=== PATIENT | female | born 1985 | race Two or more races ===

== ENCOUNTER 2017-12-04 07:49 | Emergency (ER) | payer OTHER ==
[2017-12-04 08:29] LABS: URINE HCG POC HCG NEGATIVE (Negative)
[2017-12-04 08:30] LABS: BILIRUBIN,URINE NEGATIVE (NEG); CLARITY,URINE TURBID; COLOR,URINE AMBER; GLUCOSE,URINE NEGATIVE (NEG); NITRITE,URINE NEGATIVE (NEG); PROTEIN,URINE 30 mg/dL (NEG-TRACE); UROBILINOGEN,URINE 0.2 mg/dL (0.2 mg/dL)
[2017-12-04] MEDS: IV NORMAL SALINE 1000ML BAG 1,000 ML IV ×2 (08:42)
[2017-12-04] MEDS: ONDANSETRON PF 4 MG/2 ML VIAL. IV ×2 (08:42)
[2017-12-04] MEDS: FAMOTIDINE 20 MG/2 ML VIAL IVP ×2 (08:42)
[2017-12-04 08:43] LABS: ADD MAN DIFF? NO
[2017-12-04] MEDS: fentaNYL PF VIAL 100 MCG/2 ML VIAL IV ×2 (08:43)
[2017-12-04 08:51] LABS: BACTERIA,URINE MODERATE /HPF (0-FEW); RBC,URINE 0 /HPF (0-2); SQUAMOUS EPITHELIAL CELL,UR MOD /LPF; WBC,URINE 20-40 /HPF (0-4)
[2017-12-04 08:59] LABS: ANION GAP 9 (6-14); BLOOD UREA NITROGEN 10 mg/dL (7-20); BUN/CREATININE RATIO 14 (6-20); CARBON DIOXIDE 25 mmol/L (21-32); CHLORIDE 105 mmol/L (98-107); CREATININE 0.7 mg/dL (0.6-1.0); GFR 97.6; GLUCOSE 116 mg/dL (70-99); POTASSIUM 3.8 mmol/L (3.5-5.1); SODIUM 139 mmol/L (136-145)
[2017-12-04 09:07] LABS: BASO # 0.1 x10^3/uL (0.0-0.2); BASO % 1 % (0-3); EOS # 0.1 x10^3/uL (0.0-0.7); EOS % 1 % (0-3); HEMOGLOBIN 13.3 g/dL (12.0-15.5); LYMPH # 3.9 x10^3/uL (1.0-4.8); LYMPH % 39 % (24-48); MEAN CORPUSCULAR HEMOGLOBIN 26 pg (25-35); MEAN CORPUSCULAR HGB CONC 33 g/dL (31-37); MEAN CORPUSCULAR VOLUME 79 fL (79-100); MONO # 0.5 x10^3/uL (0.0-1.1); MONO % 5 % (0-9); NEUT # 5.5 x10^3uL (1.8-7.7); NEUT % 55 % (31-73); PLATELET COUNT 228 x10^3/uL (140-400); RED BLOOD COUNT 5.09 x10^6/uL (3.50-5.40); RED CELL DISTRIBUTION WIDTH 15.6 % (11.5-14.5); WHITE BLOOD COUNT 10.1 x10^3/uL (4.0-11.0)
[2017-12-04 09:09] LABS: ALBUMIN 3.7 g/dL (3.4-5.0); ALBUMIN/GLOBULIN RATIO 0.9 (1.0-1.7); ALK PHOS 103 U/L (46-116); ALT (SGPT) 30 U/L (14-59); AST (SGOT) 26 U/L (15-37); LIPASE 126 U/L (73-393); TOTAL BILIRUBIN 0.5 mg/dL (0.2-1.0); TOTAL PROTEIN 7.9 g/dL (6.4-8.2)
[2017-12-04] MEDS: MORPHINE SULFATE 10 MG/ML VIAL. IV ×2 (09:38)
[2017-12-04 10:14] LABS: PLT ESTIMATE ADEQUATE (ADEQUATE)
[2017-12-04] MEDS: TAMSULOSIN 0.4 MG CAP.ER.24H. PO ×2 (10:50)
[2017-12-04] MEDS: HYDROmorphone 2 MG/ML VIAL IV ×2 (10:51)
== END 2017-12-04 11:13 | disposition home or self-care (01) ==
LOC: ER 07:49
DX: N20.2 Calculus of kidney with calculus of ureter (principal); N12 Tubulo-interstitial nephritis, not specified as acute or chronic; N83.202 Unspecified ovarian cyst, left side; Z90.49 Acquired absence of other specified parts of digestive tract
CPT/HCPCS: 36415; 74176; 80053; 81001; 81025; 83690; 85025; 87086; 96361; 96374; 96375; 99285-25; J1170; J2270; J2405; J3010; J7030; S0028